=== PATIENT | male | born 1965 | race Caucasian/White ===

== ENCOUNTER 2018-09-23 16:10 | Observation (INO) ==
--- NOTE | 2018-09-23 17:34 | XRay Report ---
XR chest 1V portable CLINICAL HISTORY: 53 years-old Male presenting with chest pain after exercise today, shortness of shannan ath. TECHNIQUE: Portable upright AP view of the chest was obtained. COMPARISON: None. FINDINGS: Cardiac silhouette top normal in size. Pulmonary vascular prominence. No focal opacity. No large effu umesh or pneumothorax. Degenerative changes of the thoracic spine. IMPRESSION: 1. Borderline cardiomegaly with mild volume overload. Electronically signed by: Umair Metz M.D. 09/23/2018 5:32 PM
[2018-09-23 17:39] LABS: Basophils # (auto) 0.01 K/uL (0-0.2); Basophils % (auto) 0.1 %; Eosinophils # (auto) 0.08 K/uL (0-0.5); Eosinophils % (auto) 0.7 %; Hematocrit (blood only) 45.3 % (42-52); Hemoglobin 15.7 g/dL (14.0-18.0); Immature Granulocytes # (auto) 0.04 K/uL (0.00-0.02); Immature Granulocytes % (auto) 0.3 %; Lymphocytes # (auto) 1.95 K/uL (1.2-3.4); Mean Corpuscular Hgb Conc 34.7 g/dL (32-36); Mean Corpuscular Volume 91.9 fL (80-100); Mean Platelet Volume 13.8 fL (7.4-10.4); Monocytes # (auto) 0.89 K/uL (0.11-0.59); Monocytes % (auto) 7.3 %; Neutrophils # (auto) 9.21 K/uL (1.4-6.5); Neutrophils % (auto) 75.6 %; Platelet Count 210 K/uL (130-400); RDW Coefficient of Variation 13.7 % (11.5-14.5); Red Blood Count 4.93 M/uL (4.7-6.1); White Blood Count 12.18 K/uL (4.8-10.8)
[2018-09-23 17:49] LABS: Albumin Level 3.7 gm/dl (3.4-5.0); BUN Creatinine Ratio 15.8 (10-20); Calcium 9.5 mg/dl (8.5-10.1); Creatinine Clr Calc Pharmacy 139.1 ml/min; Est GFR (African American) 100.6; Est GFR (Non-African American) 86.8; Magnesium 2.3 mg/dl (1.8-2.4); Potassium 3.5 mmol/L (3.5-5.1)
[2018-09-23 17:59] LABS: Albumin Globulin Ratio 1.1 (0.9-2); Bilirubin,Total 1.1 mg/dl (0.2-1); Globulin 3.5 gm/dl (2.5-4.0); Phosphorus 1.7 mg/dl (2.5-4.9); Total Protein 7.2 gm/dl (6.4-8.2); Troponin I 0.018 ng/ml (0-0.045)
[2018-09-23] MEDS ORDERED: OPTIRAY 320 125ml IV PRN (19:21)
--- NOTE | 2018-09-23 19:32 | CT Scan Report ---
CT ANGIOGRAPHY OF THE CHEST, PULMONARY EMBOLUS PROTOCOL CLINICAL HISTORY: Right anterior chest pain. COMPARISON STUDY: Chest radiograph performed earlier today. TECHNIQUE: Following IV administration of 115 mL of Optiray-320, helical axial images of the chest we re obtained utilizing the pulmonary embolus protocol. Maximal intensity projections and sagittal and coronal reformats were viewed on an independent 3D workstation. IV contrast was administered withou t complication. Automated exposure control was utilized for the study. A dose lowering technique wa s utilized adhering to the principles of ALARA. CT DOSE: 961.55 mGy.cm FINDINGS: No pulmonary emboli are identified. No thoracic aortic dissection is noted. Ascending aort a is dilated, measuring 4.6 cm at the level of the main pulmonary artery. The heart is mildly enlarge d. There is no pericardial effusion. There is bilateral gynecomastia. No thoracic lymphadenopathy is present. The central airways are patent. There is no pneumothorax or pleural effusion. There is no co nsolidation to suggest pneumonia. No suspicious osseous lesions are noted. No fractures are identifie d within visualized portions of the wrist. IMPRESSION: 1. No pulmonary emboli identified. 2. No acute intrathoracic findings. 3. Dilatation of the ascending aorta, measuring 4.6 cm. No thoracic aortic dissection. 4. Mild cardiomegaly. Electronically signed by: Colt Contreras M.D. 09/23/2018 7:31 PM
[2018-09-23] MEDS ORDERED: POTASSIUM PHOS 3 MMOL/1 ML INFUSION IV STA ×2 (19:53→21:36)
[2018-09-23] MEDS ORDERED: FAMOTIDINE 20 MG TAB PO ONE (19:54)
[2018-09-23] MEDS ORDERED: GI COCKTAIL ED USE PO ONE (19:54)
[2018-09-23] MEDS ORDERED: POTASSIUM PHOSPHATE 9 MMOL in SODIUM CHLORIDE 0.9% 250 ML IV ONE (20:15)
[2018-09-23] MEDS ORDERED: POLYETHYLENE (MIRALAX) 17 GM PACK PO PRN (21:36)
[2018-09-23] MEDS ORDERED: MoRPHine SULFATE 2 MG/ML CARP IV PRN (21:36)
[2018-09-23] MEDS ORDERED: NITROGLYCERIN SL 0.4 MG/TAB TAB SL PRN (21:36)
[2018-09-23] MEDS ORDERED: ACETAMINOPHEN 325 MG TAB PO PRN (21:36)
[2018-09-23] MEDS ORDERED: ONDANSETRON INJ 2 MG/ML 2 ML VIAL IV PRN (21:36)
--- NOTE | 2018-09-23 21:44 | Emergency Department Note ---
Entered by Rachel Carr acting as a scribe for Jameel Powers MD History of Present Illness General Chief complaint: Chest Pain Stated complaint: CHEST PAIN Time Seen by Provider: 09/23/18 16:42 Source: patient Limitations: no limitations History of Present Illness Provider complaint: Chest Pain Onset (ago): hour(s) 3 Location: chest Maximum Pain Intensity: 2 Quality: + sharp and + other (+tight) Exacerbated By: + other (+taking deep breaths) Associated symptoms: + denies other symptoms (-dizziness, -pain in legs, -pain in calf muscles), + diaphoresis and + other (+burping); no fever/chills and no nausea/vomiting The patient is a 53 year old male who presents to the Emergency Room with complaints of chest pain that began 3 hours prior to arrival. The patient descri bes his pain as a sharp and tight and states that it mostly on the right side. The patient states that taking deep breaths exacerbates his pain. The patient states that diaphoresis and burping. The patient denies any dizziness, vomiting, fevers, chills, pain in legs, or pain in his calf muscles. The patient states that he did do some weight lifting prior to the onset of his symptoms. The patient states that he also ate [place] food for lunch. The patient states that he was at his PCP's office prior to arrival for an annual physical exam and states that there were no concerns. The patient denies every having a stress test done. The patient denies being sedentary recently but states that he did drive 10 hours in a car 4 days prior to arrival. The patient denies a history of blood clots in his legs or lungs, acid reflux, or heart attacks. Home Medications Home Medications Medication Instructions Recorded Confirmed Type fluticasone propionate [Flonase 2 spray INTRANASAL DAILY 09/23/18 09/23/18 History Allergy Relief] losartan-hydrochlorothiazide 1 tab PO QAM 09/23/18 09/23/18 History multivitamin 1 tab PO QAM 09/23/18 09/23/18 History omega 7-[id number]-fish oil [Fish Oil] 1 cap PO QAM 09/23/18 09/23/18 History Allergies Allergy/AdvReac Type Severity Reaction Status Date / Time No Known Allergies Allergy Verified 09/23/18 17:06 Past Med/Surg History Medical History No significant active problems No significant family history No significant medical problems No significant past medical history No significant past surgical history Social History Preferred Language: German Communication Ability: Effective Chip Person Required: No Beliefs That Will Affect Care: None Current Living Situation: Spouse Other Information That Helps Us Care for You: No Feels Safe at Home: Yes Safety Concerns: Feels Safe At This Time Smoking Status: Never smoker Do You Dip or Chew Tobacco: No Second Hand Exposure: Yes Hx Alcohol Use: Yes Hx Substance Use: No Review of Systems See HPI for pertinent positives & negatives. and A total of 10 systems reviewed and were otherwise negative Physical Exam Vital Signs Vital Signs - 24 hr 09/23/18 16:32 09/23/18 16:59 09/23/18 19:00 Temperature 36.8 C Temperature Source Oral Sepsis Recent Fever Within 48 Hours No Sepsis Action Taken by Nursing No Action Required Pulse Rate 87 84 Pulse Rate from SpO2 Sensor 84 Respiratory Rate 19 18 Blood Pressure 158/97 H 163/104 H Blood Pressure Mean 117 123 Pulse Oximetry 97 97 92 Oxygen Delivery Method Room Air Room Air 09/23/18 19:01 09/23/18 19:30 09/23/18 19:31 Temperature Temperature Source Sepsis Recent Fever Within 48 Hours Sepsis Action Taken by Nursing Pulse Rate 93 H 93 H 89 Pulse Rate from SpO2 Sensor 90 Respiratory Rate 18 17 Blood Pressure 186/99 H Blood Pressure Mean 128 Pulse Oximetry 95 Oxygen Delivery Method 09/23/18 19:32 09/23/18 19:40 09/23/18 19:50 Temperature Temperature Source Sepsis Recent Fever Within 48 Hours Sepsis Action Taken by Nursing Pulse Rate 89 88 88 Pulse Rate from SpO2 Sensor 89 89 88 Respiratory Rate 18 16 18 Blood Pressure Blood Pressure Mean Pulse Oximetry 95 96 95 Oxygen Delivery Method 09/23/18 20:00 09/23/18 20:01 09/23/18 20:10 Temperature Temperature Source Sepsis Recent Fever Within 48 Hours Sepsis Action Taken by Nursing Pulse Rate 88 87 90 Pulse Rate from SpO2 Sensor 88 87 90 Respiratory Rate 18 18 25 H Blood Pressure 161/94 H Blood Pressure Mean 116 Pulse Oximetry 95 95 96 Oxygen Delivery Method 09/23/18 20:20 09/23/18 20:30 09/23/18 20:31 Temperature Temperature Source Sepsis Recent Fever Within 48 Hours Sepsis Action Taken by Nursing Pulse Rate 88 87 86 Pulse Rate from SpO2 Sensor 87 Respiratory Rate 20 23 23 Blood Pressure 187/97 H Blood Pressure Mean 127 Pulse Oximetry 95 Oxygen Delivery Method GENERAL: Awake, alert, fatigued appearing, no distress, BMI of 49.3 kg. HENT: Normocephalic, atraumatic. TM's normal. Oropharynx with dry mucous membranes and otherwise unremarkable. EYES: PERRL. EOMI. Normal conjunctiva. Sclera non-icteric. NECK: Supple. No nuchal rigidity. FROM. No JVD or bruit. RESPIRATORY: CTAB CARDIAC: RRR. No murmur. ABDOMEN: Soft, non distended. No tenderness to palpation. No rebound or guarding. No masses. RECTAL: Deferred. MUSCULOSKELETAL: Unremarkable. No edema. No discoloration. Gross motor strength symmetric. NEURO: Normal sensorium. No sensory or motor deficits noted. SKIN: No rash or jaundice noted. LYMPH: No adenopathy. Course 1657: The patient was evaluated in room B7, and a complete history and physical examination were performed. 1809: I checked on the patient. The patient was updated on their imaging and lab results. 1929: I checked on the patient. The patient was updated on their imaging and lab results. I discussed the treatment plan with the patient and he is in agreement. 2000: I discussed the patient's case with Dr. Ad Childs who will evaluate the patient for further hospitalization. Consultations Consultation #1: Dr. Ad Childs Time: 20:01 Administered Medications Potassium Phosphate 24 mmol/ (Sodium Chloride) 508 mls @ 101.6 mls/hr IV ONE ONE Stop: 09/24/18 02:59 Last Admin: 09/23/18 22:48 Dose: 101.6 mls/hr Documented by: [id number] Morphine Sulfate (Morphine Sulfate) 2 mg IV Q30M PRN PRN Reason: Chest Pain Stop: 10/07/18 21:35 Last Admin: 09/23/18 22:24 Dose: 2 mg Documented by: [id number] Discontinued Medications Al Hydrox/Mg Hydrox/Simethicone () 1 dose PO ONE ONE Stop: 09/23/18 19:55 Last Admin: 09/23/18 20:20 Dose: 1 dose Documented by: [id number] Famotidine (Pepcid) 20 mg PO NOW ONE Stop: 09/23/18 19:55 Last Admin: 09/23/18 20:20 Dose: 20 mg Documented by: [id number] Potassium Phosphate 9 mmol/ (Sodium Chloride) 253 mls @ 126.5 mls/hr IV ONE ONE Stop: 09/23/18 22:14 Last Infusion: 09/23/18 22:50 Dose: 0 mls/hr Documented by: [id number] Admin: 09/23/18 20:20 Dose: 126.5 mls/hr Documented by: [id number] Ioversol (Optiray 320 125ml) 115 ml IV ONCE PRN PRN Reason: Interaction Checking Stop: 09/27/18 19:20 Last Admin: 09/23/18 19:21 Dose: 1 ml Documented by: [id number] Medical Decision Making Differential Diagnosis Differential diagnoses includes acute coronary syndrome, pulmonary embolus, aortic dissection, musculoskeletal pain, pneumonia, pleural effusion, pneumothorax, gastritis, peptic ulcer disease. Medical Records Attestation: I reviewed the patient's medical records. Home Medications Current Medication List: was personally reviewed by me Laboratory Data Attestation: I reviewed the patient's lab results. Result diagrams: 09/23/18 16:30 09/23/18 16:30 Lab Results 09/23/18 09/23/18 09/23/18 Range/Units 16:30 16:30 16:30 WBC 12.18 H (4.8-10.8) K/uL RBC 4.93 (4.7-6.1) M/uL Hgb 15.7 (14.0-18.0) g/dL Hct 45.3 (42-52) % MCV 91.9 (80-100) fL MCH 31.8 (25-34) pg MCHC 34.7 (32-36) g/dL RDW Std Deviation 46.0 (36.4-46.3) fL RDW Coeff of Denise 13.7 (11.5-14.5) % Plt Count 210 (130-400) K/uL MPV 13.8 H (7.4-10.4) fL Immature Gran % (Auto) 0.3 % Neut % (Auto) 75.6 % Lymph % (Auto) 16.0 % Lincoln % (Auto) 7.3 % Eos % (Auto) 0.7 % Baso % (Auto) 0.1 % Immature Gran # (Auto) 0.04 H (0.00-0.02) K/uL Neut # (Auto) 9.21 H (1.4-6.5) K/uL Lymph # (Auto) 1.95 (1.2-3.4) K/uL Lincoln # (Auto) 0.89 H (0.11-0.59) K/uL Eos # (Auto) 0.08 (0-0.5) K/uL Baso # (Auto) 0.01 (0-0.2) K/uL D-Dimer Cancelled Sodium 142 (136-145) mmol/L Potassium 3.5 (3.5-5.1) mmol/L Chloride 105 (98-107) mmol/L Carbon Dioxide 29 (21-32) mmol/L Anion Gap 9.0 (3-11) BUN 16 (7-18) mg/dl Creatinine 1.00 (0.6-1.4) mg/dl Est Cr Clr Drug Dosing 139.1 ml/min Est GFR ( Amer) 100.6 Est GFR (Non-Af Amer) 86.8 BUN/Creatinine Ratio 15.8 (10-20) Glucose 102 H (70-99) mg/dl Calcium 9.5 (8.5-10.1) mg/dl Phosphorus 1.7 L (2.5-4.9) mg/dl Magnesium 2.3 (1.8-2.4) mg/dl Total Bilirubin 1.1 H (0.2-1) mg/dl AST 30 (15-37) U/L ALT 54 (12-78) U/L Alkaline Phosphatase 86 (45-117) U/L Troponin I 0.018 (0-0.045) ng/ml NT-Pro-B Natriuret Pep (0-900) pg/ml Total Protein 7.2 (6.4-8.2) gm/dl Albumin 3.7 (3.4-5.0) gm/dl Globulin 3.5 (2.5-4.0) gm/dl Albumin/Globulin Ratio 1.1 (0.9-2) Lipase 95 (73-393) U/L TSH 1.950 (0.300-4.500) uIu/ml 09/23/18 09/23/18 Range/Units 16:30 20:10 WBC (4.8-10.8) K/uL RBC (4.7-6.1) M/uL Hgb (14.0-18.0) g/dL Hct (42-52) % MCV (80-100) fL MCH (25-34) pg MCHC (32-36) g/dL RDW Std Deviation (36.4-46.3) fL RDW Coeff of Denise (11.5-14.5) % Plt Count (130-400) K/uL MPV (7.4-10.4) fL Immature Gran % (Auto) % Neut % (Auto) % Lymph % (Auto) % Lincoln % (Auto) % Eos % (Auto) % Baso % (Auto) % Immature Gran # (Auto) (0.00-0.02) K/uL Neut # (Auto) (1.4-6.5) K/uL Lymph # (Auto) (1.2-3.4) K/uL Lincoln # (Auto) (0.11-0.59) K/uL Eos # (Auto) (0-0.5) K/uL Baso # (Auto) (0-0.2) K/uL D-Dimer Sodium (136-145) mmol/L Potassium (3.5-5.1) mmol/L Chloride (98-107) mmol/L Carbon Dioxide (21-32) mmol/L Anion Gap (3-11) BUN (7-18) mg/dl Creatinine (0.6-1.4) mg/dl Est Cr Clr Drug Dosing ml/min Est GFR ( Amer) Est GFR (Non-Af Amer) BUN/Creatinine Ratio (10-20) Glucose (70-99) mg/dl Calcium (8.5-10.1) mg/dl Phosphorus (2.5-4.9) mg/dl Magnesium (1.8-2.4) mg/dl Total Bilirubin (0.2-1) mg/dl AST (15-37) U/L ALT (12-78) U/L Alkaline Phosphatase (45-117) U/L Troponin I 0.024 (0-0.045) ng/ml NT-Pro-B Natriuret Pep 217 (0-900) pg/ml Total Protein (6.4-8.2) gm/dl Albumin (3.4-5.0) gm/dl Globulin (2.5-4.0) gm/dl Albumin/Globulin Ratio (0.9-2) Lipase (73-393) U/L TSH (0.300-4.500) uIu/ml Imaging Data Radiologist's Impression: Radiology results as stated below per my review and the radiologist's interpretation: XR chest 1V portable CLINICAL HISTORY: 53 years-old Male presenting with chest pain after exercise today, shortness of breath. TECHNIQUE: Portable upright AP view of the chest was obtained. COMPARISON: None. FINDINGS: Cardiac silhouette top normal in size. Pulmonary vascular prominence. No focal opacity. No large effusion or pneumothorax. Degenerative changes of the thoracic spine. IMPRESSION: 1. Borderline cardiomegaly with mild volume overload. Electronically signed by: Umair Metz M.D. 09/23/2018 5:[address] ANGIOGRAPHY OF THE CHEST, PULMONARY EMBOLUS PROTOCOL CLINICAL HISTORY: Right anterior chest pain. COMPARISON STUDY: Chest radiograph performed earlier today. TECHNIQUE: Following IV administration of 115 mL of Optiray-320, helical axial images of the chest were obtained utilizing the pulmonary embolus protocol. Maximal intensity projections and sagittal and coronal reformats were viewed on an independent 3D workstation. IV contrast was administered without complication. Automated exposure control was utilized for the study. A dose lowering technique was utilized adhering to the principles of ALARA. CT DOSE: 961.55 mGy.cm FINDINGS: No pulmonary emboli are identified. No thoracic aortic dissection is noted. Ascending aorta is dilated, measuring 4.6 cm at the level of the main pulmonary artery. The heart is mildly enlarged. There is no pericardial effusion. There is bilateral gynecomastia. No thoracic lymphadenopathy is present. The central airways are patent. There is no pneumothorax or pleural effusion. There is no consolidation to suggest pneumonia. No suspicious osseous lesions are noted. No fractures are identified within visualized portions of the wrist. IMPRESSION: 1. No pulmonary emboli identified. 2. No acute intrathoracic findings. 3. Dilatation of the ascending aorta, measuring 4.6 cm. No thoracic aortic dissection. 4. Mild cardiomegaly. Electronically signed by: Colt Contreras M.D. 09/23/2018 7:31 PM ECG Data Attestation: I personally reviewed and interpreted this ECG as follows: Indication: chest pain Rate (beats per minute): 84 Rhythm: normal sinus Findings: + nonspecific-ST abn; no ST depression, no ST elevation and no acute ischemic change Comparison ECG Date: from (REPEAT ECG on 09/23/18) Change: no significant change Additional Comments: Repeat ECG: Indication: chest pain Rate: 87 Rhythm: normal sinus Findings: nonspecific ST abnormality, NO ST elevation, NO ST depression, NO o vert acute ischemic change Blood Pressure Blood Pressure Findings: Elevated blood pressure Blood Pressure Disposition: Referred to patients primary care provider MDM Narrative The patient is a pleasant 53 y/o gentleman with a pmhx of HTN who presents to the emergency department with episode of substernal CP with exertion at noon today with improvement in sx after ASA and nitro by EMS prior to arrival per HPI. On arrival the patient is in NAD, AFVSS. EKG with nonspecific TWA and otherwise without overt acute ischemia. CXR with cardiomegaly and vascular prominence. Limited bedside RUQ US negative for gallstones. WBC 12, nonspecific. H/H and platelets wnl. Chemistry without acidosis. Phosphorus 1.7 with repletion provided. Initial troponin 0.18 with delta 4 hour troponin 0.024. BNP wnl. Repeat EKG unchanged. LFTs unremarkable. CTA negative for PE. There is dilatation of the ascending aorta, measuring 4.6 cm without dissection. Patient reporting slight return of sx, which are again located in right lower chest RUQ/epigastrim. Thus will trial pepcid and Gi cocktail to assess for possible GI component to sx. Nonetheless, given patient's initial exertional sx, Heart score 4, moderate risk. Therefore reasonable to admit for further cardiac evaluation. [facility]. Impression & Plan Exertional chest pain Discharge Plan Visit Data *Final* Discharge Date/Time: 09/23/18 21:10 Chief Complaint: Chest Pain Stated Complaint: CHEST PAIN ED Provider: Jameel Powers Discharge Problem: Exertional chest pain Patient Disposition: Admitted As Inpatient Discharge Instructions Interventions: ED Discharge Assessment Last Done: 09/23/18 21:10 The scribe's documentation has been prepared under my direction and personally reviewed by me in its entirety. I confirm that the note above accurately refl ects all work, treatment, procedures, and medical decision making performed by me.
[2018-09-23] MEDS ORDERED: POTASSIUM PHOSPHATE 24 MMOL in SODIUM CHLORIDE 0.9% 500 ML IV ONE (22:00)
--- NOTE | 2018-09-24 01:06 | History and Physical Report ---
DATE OF ADMISSION: 09/23/2018 CHIEF COMPLAINT: Chest pain. HISTORY OF PRESENT ILLNESS: This is a 53-year-old male with past medical history significant for hypertension and morbid obesity who presents with chest pain. The patient was in the gym, after he was doing lower extremity workouts when he suddenly developed severe chest pain in the right lower chest, it gotten more and more intense, he felt hard to breathe, he felt chest tightness kind of feeling and was brought in to the Emergency Room, he was given nitro which caused headache. During the episode, there was no dizziness. No nausea or vomiting, but he felt he was having sweating. In the Emergency Room, the patient received gastrointestinal cocktail and Pepcid. Currently, pain is mild in his right lower chest. He is resting comfortably and hemodynamically stable. Denies nausea. No blurred vision. No earache. No runny nose. No sore throat. No difficulty swallowing. He does not sleep well. He sleeps on a recliner at home. He has some lower extremity pain because of his ligament tear in his knees. No abdominal pain. Normal bowel and bladder movements. No hematuria. No diarrhea or constipation. ALLERGIES: No known drug allergies. PAST MEDICAL HISTORY: As mentioned above. PAST SURGICAL HISTORY: Shoulder surgery. MEDICATIONS: The patient is on losartan and hydrochlorothiazide 1 tablet a.m., Flonase 2 sprays nasal daily and omega fish oil daily. FAMILY HISTORY: Both uncles have heart disease. Father had sarcoidosis. SOCIAL HISTORY: Remote history of smoking. Alcohol, very rarely. Lives with his family. REVIEW OF SYMPTOMS: As per HPI. Rest of review of symptoms is negative. PHYSICAL EXAMINATION: GENERAL: The patient is morbidly obese, not in acute distress. VITAL SIGNS: Temperature 36.8, pulse 89, respiratory rate 17, blood pressure 186/99 and oxygen 95% on room air. HEENT: No pallor. No icterus. Pupils are equal, round and reactive to light. NECK: No JVD. No neck masses. No carotid bruit. CARDIOVASCULAR: S1, S2 heard. Regular rate and rhythm. No murmur. No gallop. RESPIRATORY SYSTEM: Normal AP diameter. No accessory muscle use. No wheezing. No crackles. ABDOMEN: Soft. Bowel sounds present. Nontender. No distention. CENTRAL NERVOUS SYSTEM: Cranial nerves II through XII grossly intact. Nonfocal. EXTREMITIES: Mild pedal edema. No erythema seen. LABORATORY DATA: WBC 12.1, hemoglobin 15.7, hematocrit 45.3 and platelets 210. Sodium 142, potassium 3.5, chloride 105, bicarbonate 29, BUN 16, creatinine 1, serum glucose 102, calcium 9.5, phosphorus 1.7, magnesium 2.3, total bilirubin 1.1, AST 30, ALT 54 and alkaline phosphatase 86. Troponin I of 0.018. Lipase 95. TSH 1.95. Chest x-ray, borderline cardiomegaly. CT of the chest, no pulmonary emboli identified, no acute intrathoracic findings, dilatation of ascending aorta measuring 4.6 cm, no thoracic aortic dissection and mild cardiomegaly. Electrocardiogram shows normal sinus rhythm, rate of [address] changes present. ASSESSMENT AND PLAN: This is a 53-year-old male who presents with chest pain. 1. Chest pain. Initial workup is negative. Risk factors are age, obesity and hypertension. We will rule out acute coronary syndrome with serial cardiac enzymes and echocardiogram. We will keep n.p.o. after midnight for possible stress test in a.m. Cardiology consult. Monitor on tele floor. 2. Morbid obesity, needs counseling, may need a sleep study as an outpatient. 3. Hypophosphatemia. We will replace. 4. Mild elevation in total bilirubin. Repeat laboratories in a.m. 5. Hypertension. Continue his home medications. 6. Dilated ascending aorta. 4.6cm. Needs followup. 7. Dep venous thrombosis prophylaxis, sequential compression devices. 8. Disposition: Observation on tele floor. Expect to discharge home and follow up with family doctor. Level 1 full code. MTDD
[2018-09-24 05:32] LABS: Basophils # (auto) 0.02 K/uL (0-0.2); Basophils % (auto) 0.2 %; Eosinophils # (auto) 0.09 K/uL (0-0.5); Eosinophils % (auto) 0.9 %; Hematocrit (blood only) 43.3 % (42-52); Hemoglobin 14.6 g/dL (14.0-18.0); Immature Granulocytes # (auto) 0.03 K/uL (0.00-0.02); Immature Granulocytes % (auto) 0.3 %; Lymphocytes # (auto) 1.34 K/uL (1.2-3.4); Mean Corpuscular Hgb Conc 33.7 g/dL (32-36); Mean Corpuscular Volume 91.9 fL (80-100); Monocytes % (auto) 10.7 %; Neutrophils # (auto) 7.69 K/uL (1.4-6.5); Neutrophils % (auto) 74.9 %; Platelet Count 193 K/uL (130-400); RDW Coefficient of Variation 13.8 % (11.5-14.5); RDW Standard Deviation 46.7 fL (36.4-46.3); Red Blood Count 4.71 M/uL (4.7-6.1); White Blood Count 10.27 K/uL (4.8-10.8)
[2018-09-24 05:48] LABS: BUN Creatinine Ratio 18.1 (10-20); Calcium 8.5 mg/dl (8.5-10.1); Est GFR (African American) 119.9; Est GFR (Non-African American) 103.4; Magnesium 2.5 mg/dl (1.8-2.4); Potassium 3.6 mmol/L (3.5-5.1)
[2018-09-24 05:53] LABS: Albumin Level 3.3 gm/dl (3.4-5.0); Bilirubin Direct 0.2 mg/dl (0-0.2); Bilirubin,Total 1.2 mg/dl (0.2-1); Total Protein 6.7 gm/dl (6.4-8.2); Troponin I 0.02 ng/ml (0-0.045)
[2018-09-24] MEDS ORDERED: LOSARTAN/HCTZ 50/12.5MG TAB PO SCH (09:00)
[2018-09-24] MEDS ORDERED: MULTIVITAMIN TAB PO SCH (09:00)
[2018-09-24] MEDS ORDERED: FLUTICASONE PROPIONATE NA SPR 16 GM BTL SCH (09:00)
[2018-09-24] MEDS ORDERED: ASPIRIN 81 MG ECTAB PO SCH (09:00)
[2018-09-24] MEDS ORDERED: DOBUTamine HCL 12.5 MG/ML 20 ML VIAL IV ONE (09:27)
[2018-09-24] MEDS ORDERED: ATROPINE SULFATE 0.1 MG/ML 10ML SYR IV ONE (09:27)
[2018-09-24] MEDS ORDERED: METOPROLOL TARTRATE 1 MG/ML VIAL IV ONE (09:27)
[2018-09-24] MEDS ORDERED: PERFLUTREN LIPID MICROSPHERE (DEFINITY) IV ONE (10:58)
--- NOTE | 2018-09-24 11:32 | Consultation Report ---
DATE OF CONSULTATION: 09/24/2018 INPATIENT CARDIOLOGY CONSULTATION CONSULTATION REQUESTED BY: Dr. Newman. REASON FOR CONSULTATION: Chest pain. HISTORY OF PRESENT ILLNESS: Mr. Alcantara is a 53-year-old gentleman who presented to [facility] on 09/23/2018 with complaints of chest pain. The patient states he was in his normal state of health yesterday and actually saw his primary care provider in the morning. He then went to work at the long term. He was going through his normal routine and suddenly developed chest pain. He described it as a pressure sensation that started in the center of his chest and then radiated around underneath his right breast. It was worse with deep inhalation and he denied any associated symptoms, specifically denied any associated shortness of breath, diaphoresis, nausea, palpitations, lightheadedness, dizziness, or syncope. The pain persisted and again was exacerbated by deep inhalation. He became concerned and came into the Emergency Department. In the ER, his EKG showed some nonspecific changes and was admitted to telemetry. He states that the pains stay present overnight and still present at time of the examination and ranks this anywhere between a 2-4 on a pain scale depending on how deep he breaths. Otherwise, he states he has been in his normal state of health lately. He has been lifting weights, but states he was not working out his chest muscles yesterday. PAST SURGICAL HISTORY: 1. Shoulder surgery. 2. Knee surgery. 3. Tonsillectomy as a child. MEDICAL ILLNESSES: 1. Hypertension. 2. Hypertriglyceridemia. FAMILY HISTORY: Remarkable for father with sarcoidosis, unclear of cardiac involvement, but denies any premature coronary artery disease or sudden cardiac . SOCIAL HISTORY: The patient has remote tobacco use history. Drinks occasional alcohol. Denies any recreational drug use. He is and lives at home with his . He has 2 children who are in good health. He is employed as a fire officer. REVIEW OF SYSTEMS: As per HPI, all other systems reviewed and negative at this time. ALLERGIES: No known drug allergies. MEDICATIONS AN OUTPATIENT: 1. Losartan/hydrochlorothiazide, the patient is unsure of dose. 2. Flonase. 3. Fish oil. 4. Multivitamin. PHYSICAL EXAMINATION: VITALS: Temperature 36.4, pulse 75, respiratory rate 12, blood pressure 154/88. GENERAL: Awake, alert, oriented x3 in no acute distress. HEENT: Normocephalic, atraumatic. Pupils equal, round, reactive to light and accommodation. Extraocular muscles intact. Anicteric sclerae. Moist mucous membranes. NECK: No JVD, no bruit. CARDIOVASCULAR: Regular, but distant. Unable to appreciate any murmurs, rubs or gallops. PULMONARY: Clear to auscultation bilaterally. No rales, rhonchi, or wheezing. ABDOMEN: Bowel sounds x4, soft. No rebound, guarding, or tenderness. No organomegaly. EXTREMITIES: No clubbing, cyanosis or edema. +2 pedal pulses bilaterally. SKIN: Warm and dry. TEST RESULTS: A 12-lead EKG performed in the Emergency Department independently reviewed at this time shows normal sinus rhythm at 84 beats per minute, normal axis, normal intervals, inverted T waves in the lateral leads. LABORATORY STUDIES: Troponin negative x3. Dobutamine stress echocardiogram was negative for inducible ischemia. IMPRESSION: 1. Chest pain with nonischemic dobutamine stress echocardiogram, reproducible. 2. Hypertension. 3. Obesity. RECOMMENDATIONS: Mr. Alcantara was counseled, given the fact that his chest pain is reproducible and that his dobutamine stress echocardiogram is nonischemic that there does not appear to be any cardiac involvement to his chest discomfort. I recommend stretching exercises and supportive care for his chest pain and follow up with his PCP. It is okay to discharge the patient to home from a cardiac standpoint. No cardiac followup is necessary.
[2018-09-24] MEDS ORDERED: ACETAMINOPHEN SOLN 160 MG/5 ML UDC PO PRN (13:08)
[2018-09-24] MEDS ORDERED: IBUPROFEN 200 MG/10 ML UDC PO PRN (13:09)
--- NOTE | 2018-09-24 13:17 | Hospitalist Progress Note ---
Date of Service September 24, 2018 Assessment & Plan (1) Chest pain: NON CARDIAC CHEST PAIN cardiology evaluation: "chest pain is reproducible and that his dobutamine stress echocardiogram is nonischemic that there does not appear to be any cardiac involvement to his chest discomfort." cardiology service recommends stretching exercises and supportive care for his chest pain and follow up with primary care doctor -hospitalist doctor discussed with patient about follow up with primary care doctor in 1 week if discomforts do no resolve -that patient can return to work without restrictions -however patient should minimize strength training exercises for 1 week or until discomfort resolves -patient may take acetaminophen 325 mg every 6 hours as needed for mild pain for 5 days -patient may take ibuprofen 400 mg every 8 hours as needed for moderate pain for 5 days Hypertension Patient should continue home dose blood pressure medications and follow up with primary care doctor Dilatation of the ascending aorta, measuring 4.6 cm. -No thoracic aortic dissection - monitoring as per primary care doctoras outpatient Dilatation of the ascending aorta, measuring 4.6 cm. No thoracic aortic dissection - monitoring as per primary care doctor Discharge Diagnosis chest pain (non cardiac chest pain), hypertension, Dilatation of the ascending aorta, measuring 4.6 cm. Subjective Patient seen and examined at bedside. No acute chest pressure. when he moves the shoulders he reports some chest pain beneath right rib cage. breathes comfortably on room air. no abdomen pain. no vomiting. no dizziness Physical Exam Constitutional: comfortable Eyes: PERRL, conjunctivae normal, anicteric sclerae EOM intact bilaterally ENMT: external ear and nose normal, oropharynx normal Neck: trachea midline, no thyromegaly Respiratory: normal respiratory effort, lungs clear to auscultation Cardiovascular: RRR, no murmur, no edema Gastrointestinal (Abdomen): normal bowel sounds, soft, nontender, no hepatosplenomegaly Musculoskeletal: no cyanosis or clubbing, extremities motor strength 5/5 Head/Neck/Chest: normocephalic and head atraumatic Neurologic: PERRL, EOMI, accommodation nl, no face palsy, no dysarthria CN's II-XI intact bilaterally Psychiatric: A+Ox3, euthymic affect Results & Data Vital Signs (Past 12 Hours) Vital Signs Temp Pulse Pulse Resp BP Pulse Ox 09/24/18 11:49 36.5 C 85 16 142/90 H 93 09/24/18 08:00 75 09/24/18 06:56 36.4 C L 74 16 154/88 H 94 09/24/18 04:10 36.5 C 83 18 155/83 H 95
--- NOTE | 2018-09-24 13:24 | Discharge Summary ---
Date of Service September 24, 2018 Admission HPI Per Admitting Provider CHIEF COMPLAINT: Chest pain. HISTORY OF PRESENT ILLNESS: This is a 53-year-old male with past medical history significant for hypertension and morbid obesity who presents with chest pain. The patient was in the gym, after he was doing lower extremity workouts when he suddenly developed severe chest pain in the right lower chest, it gotten more and more intense, he felt hard to breathe, he felt chest tightness kind of feeling and was brought in to the Emergency Room, he was given nitro which caused headache. During the episode, there was no dizziness. No nausea or vomiting, but he felt he was having sweating. In the Emergency Room, the patient received gastrointestinal cocktail and Pepcid. Currently, pain is mild in his right lower chest. He is resting comfortably and hemodynamically stable. Denies nausea. No blurred vision. No earache. No runny nose. No sore throat. No difficulty swallowing. He does not sleep well. He sleeps on a recliner at home. He has some lower extremity pain because of his ligament tear in his knees. No abdominal pain. Normal bowel and bladder movements. No hematuria. No diarrhea or constipation. ALLERGIES: No known drug allergies. PAST MEDICAL HISTORY: As mentioned above. PAST SURGICAL HISTORY: Shoulder surgery. MEDICATIONS: The patient is on losartan and hydrochlorothiazide 1 tablet a.m., Flonase 2 sprays nasal daily and omega fish oil daily. FAMILY HISTORY: Both uncles have heart disease. Father had sarcoidosis. SOCIAL HISTORY: Remote history of smoking. Alcohol, very rarely. Lives with his family. REVIEW OF SYMPTOMS: As per HPI. Rest of review of symptoms is negative. Admission Exam Per Admitting Provider PHYSICAL EXAMINATION: GENERAL: The patient is morbidly obese, not in acute distress. VITAL SIGNS: Temperature 36.8, pulse 89, respiratory rate 17, blood pressure 186/99 and oxygen 95% on room air. HEENT: No pallor. No icterus. Pupils are equal, round and reactive to light. NECK: No JVD. No neck masses. No carotid bruit. CARDIOVASCULAR: S1, S2 heard. Regular rate and rhythm. No murmur. No gallop. RESPIRATORY SYSTEM: Normal AP diameter. No accessory muscle use. No wheezing. No crackles. ABDOMEN: Soft. Bowel sounds present. Nontender. No distention. CENTRAL NERVOUS SYSTEM: Cranial nerves II through XII grossly intact. Nonfocal. EXTREMITIES: Mild pedal edema. No erythema seen. Principal Diagnosis chest pain (non cardiac chest pain), hypertension, Dilatation of the ascending aorta, measuring 4.6 cm. Discharge Exam Constitutional comfortable Eyes PERRL, conjunctivae normal, anicteric sclerae EOM intact bilaterally ENMT external ear and nose normal, oropharynx normal Neck trachea midline, no thyromegaly Respiratory normal respiratory effort, lungs clear to auscultation Cardiovascular RRR, no murmur, no edema Gastrointestinal (Abdomen) normal bowel sounds, soft, nontender, no hepatosplenomegaly Musculoskeletal no cyanosis or clubbing, extremities motor strength 5/5 Head/Neck/Chest: normocephalic and head atraumatic Neurologic PERRL, EOMI, accommodation nl, no face palsy, no dysarthria CN's II-XI intact bilaterally Psychiatric A+Ox3, euthymic affect Discharge Data Allergies Allergy/AdvReac Type Severity Reaction Status Date / Time No Known Allergies Allergy Verified 09/23/18 17:06 Consultations 09/23/18 20:02 ED Decision to Admit Stat 09/23/18 21:36 Consult Case Management - Discharge Planning Routine 09/24/18 08:00 Consult Cardiology Routine Ordered Studies 09/23/18 18:24 CT angio chest PE protocol Stat Hospital Course (1) Chest pain: NON CARDIAC CHEST PAIN cardiology evaluation: "chest pain is reproducible and that his dobutamine stress echocardiogram is nonischemic that there does not appear to be any cardiac involvement to his chest discomfort." cardiology service recommends stretching exercises and supportive care for his chest pain and follow up with primary care doctor -hospitalist doctor discussed with patient about follow up with primary care doctor in 1 week if discomforts do no resolve -that patient can return to work without restrictions -however patient should minimize strength training exercises for 1 week or until discomfort resolves -patient may take acetaminophen 325 mg every 6 hours as needed for mild pain for 5 days -patient may take ibuprofen 400 mg every 8 hours as needed for moderate pain for 5 days Hypertension Patient should continue home dose blood pressure medications and follow up with primary care doctor Dilatation of the ascending aorta, measuring 4.6 cm. -No thoracic aortic dissection - monitoring as per primary care doctoras outpatient Dilatation of the ascending aorta, measuring 4.6 cm. No thoracic aortic dissection - monitoring as per primary care doctor Discharge Diagnosis chest pain (non cardiac chest pain), hypertension, Dilatation of the ascending aorta, measuring 4.6 cm. Total Time Total Time Spent Total Time Spent (In Minutes): 40 minutes Total Time Includes: Examination of the Patient, Discharge Planning, Medication Reconciliation and Communication With Other Providers Discharge Plan Discharge Items Patient Disposition: Home - Self-Care Reason For Visit: CHEST PAIN Discharge Diagnosis: chest pain (non cardiac chest pain), hypertension, Dilatation of the ascending aorta, measuring 4.6 cm. No thoracic aortic dissection Condition: Good Discharge Goals: Improve function Activity: Resume your previous activity Non-emergency contact: Primary Care Provider Call non-emergency contact if: you have any medication questions Follow-up/Referrals: PCP,LISA [Primary Care Provider] - Diet: Regular Addtl Provider Instructions: cardiology evaluation: "chest pain is reproducible and that his dobutamine stress echocardiogram is nonischemic that there does not appear to be any cardiac involvement to his chest discomfort." cardiology service recommends stretching exercises and supportive care for his chest pain and follow up with primary care doctor hospitalist doctor discussed with patient about follow up with primary care doctor in 1 week if discomforts do no resolve -that patient can return to work without restrictions -however patient should minimize strength training exercises for 1 week or until discomfort resolves -patient may take acetaminophen 325 mg every 6 hours as needed for mild pain for 5 days -patient may take ibuprofen 400 mg every 8 hours as needed for moderate pain for 5 days Patient should continue home dose blood pressure medications and follow up with primary care doctor Dilatation of the ascending aorta, measuring 4.6 cm. No thoracic aortic dissection - monitoring as per primary care doctor Prescriptions: New ibuprofen 400 mg tablet 400 mg PO Q8H PRN (Reason: moderate pain) 5 Days Qty: 15 RF: 0 acetaminophen 325 mg capsule 325 mg PO Q6H PRN (Reason: mild pain) 5 Days Qty: 20 RF: 0 Continued multivitamin Tablet 1 tab PO QAM RF: 0 losartan-hydrochlorothiazide 100-25 mg tablet 1 tab PO QAM RF: 0 fluticasone propionate [Flonase Allergy Relief] 50 mcg/actuation [place],Suspension 2 spray INTRANASAL DAILY RF: 0 omega [id number] oil [Fish Oil] 1,000 mg (120 mg-180 mg) Capsule 1 cap PO QAM RF: 0 Stand-Alone Forms: Call Back Authorization, [facility] Discharge Orders: Discharge Order (Routine); Ordered 09/24/18 Ordered By: Hoang Newman Admission Data Admit Date/Time: 09/23/18 20:38 Attending Provider: Hoang Newman Admit Provider: Dk Torres Primary Care Provider: PCP,NO Other Providers: Dk Torres ; Vijay Rivas ; Carter Negrete ; Clive Verdugo ; Zhang Martin ; Tawanda Yeh ; Valerio Hilton ; Miranda Anguiano ; Stephanie Slaughter Service: Telemetry
== END 2018-09-24 14:50 | disposition home or self-care (01) ==
LOC: ED 16:10 → 2S 16:10

== ENCOUNTER 2024-01-20 10:38 | Observation (INO) ==
--- NOTE | 2023-12-29 16:14 | PAT Medication Instructions ---
Medication Instructions Date of Service December 29, 2023 Home Medications fluticasone propionate 50 mcg/actuation nasal spray,suspension (Flonase Allergy Relief) 2 spray intranasal QAM losartan 100 mg-hydrochlorothiazide 25 mg tablet 1 tab PO QAM amlodipine 10 mg tablet 10 mg PO QAM aspirin 81 mg tablet,delayed release 81 mg PO QAM bumetanide 1 mg tablet 1 mg PO QAM fexofenadine 180 mg tablet 180 mg PO DAILY PRN Allergy Symptoms potassium chloride 20 mEq tablet,extended release 40 meq PO QAM tramadol 50 mg tablet 50 mg PO HS ASK your prescriber and surgeon aspirin 81 mg tablet,delayed release 81 mg PO QAM DO NOT take the morning of surgery losartan 100 mg-hydrochlorothiazide 25 mg tablet 1 tab PO QAM bumetanide 1 mg tablet 1 mg PO QAM fexofenadine 180 mg tablet 180 mg PO DAILY PRN Allergy Symptoms potassium chloride 20 mEq tablet,extended release 40 meq PO QAM Take morning of surgery With a small sip of water, OTHERWISE NOTHING TO EAT OR DRINK AFTER MIDNIGHT: fluticasone propionate 50 mcg/actuation nasal spray,suspension (Flonase Allergy Relief) 2 spray intranasal QAM amlodipine 10 mg tablet 10 mg PO QAM Take evening before surgery fexofenadine 180 mg tablet 180 mg PO DAILY PRN Allergy Symptoms (if needed) tramadol 50 mg tablet 50 mg PO HS Other Notes If you have any questions please call us at [phone] or [phone] or [phone] or [phone]
--- NOTE | 2024-01-08 13:12 | Anesthesiology Consultation ---
Date of Service January 08, 2024 Assessment & Plan (1) Encounter for pre-operative examination: - hypokalemia, 2.9: I contacted the PCP office ([facility], [facility] Roman) and relayed this level to nurse Radha. Patient will need both PCP and pulmonology pre-operative notations. Awaiting PCP response on hypokalemia. - [facility] pulmonology response to optimization form if chest CT and PFTs need done prior to surgery. Patient made aware at PAT, denied questions or concerns. Surgeon's office made aware of above. Chart Review Chart Review: Pending: Refer to Additional Notes / Consult section and Patient seen in Pre Admission Testing Teaching & Discussion Pre-Anesthesia Teaching/Discussion Notes: Instructed NPO after midnight before surgery, except medications with 15 cc of water. Medication instructions provided according to the [facility] guidelines. History Surgery Operation Date: 01/20/24 12:05 Proposed Procedures p L2-L3, L3-L4 Posterior Lumbar Laminectomy - Figueroa Renae MD Height/Weight Height: 6 ft Weight: 159.6 kg Allergies Allergy/AdvReac Type Severity Reaction Status Date / Time No Known Allergies Allergy Verified 12/25/23 09:00 Medications Home Medications Medication Instructions Recorded Confirmed Last Taken fluticasone propionate 50 2 spray intranasal QAM 09/23/18 12/25/23 01/29/23 09:30 mcg/actuation nasal spray,suspension (Flonase Allergy Relief) losartan 100 1 tab PO QAM 09/23/18 12/25/23 01/29/23 09:30 mg-hydrochlorothiazide 25 mg tablet amlodipine 10 mg tablet 10 mg PO QAM 01/22/23 12/25/23 01/30/23 06:45 aspirin 81 mg tablet,delayed 81 mg PO QAM 01/22/23 12/25/23 01/29/23 09:30 release bumetanide 1 mg tablet 1 mg PO QAM 01/22/23 12/25/23 01/29/23 09:30 fexofenadine 180 mg tablet 180 mg PO DAILY PRN Allergy 01/22/23 12/25/23 Unknown Symptoms potassium chloride 20 mEq 40 meq PO QAM 01/22/23 12/25/23 01/29/23 09:30 tablet,extended release tramadol 50 mg tablet 50 mg PO HS 12/25/23 12/25/23 Unknown Past Medical History Medical History (Updated 01/08/24 @ 13:24 by Garima Myers PA-C) Anxiety Bilateral finger numbness suspected sarcoidosis per patient, states has upcoming CT and PFT ordered by pulmonology [place] CAD (coronary artery disease) non-obstructive Chronic low back pain HTN (hypertension) controlled, stable per pt Hx of chest pain 2018, cardiac cath at [facility], "no findings, had one f/u visit w/ph cardio and released" denies recurrence Low back pain radiating to left lower extremity Lumbar stenosis with neurogenic claudication Pulmonary hypertension noted on 2019 cardiac catheterization Sleep apnea CPAP Patient denies h/o stroke, seizures, heart attack, heart failure, DM, blood clots/DVTs or blood transfusions. Exercise / Class Metabolic Activity III < 4 Walking/Shop/Light housework (denies chest discomfort or shortness of breath with usual activities) Past Surgical History Surgical History History of arthroscopy of left knee History of arthroscopy of right knee History of arthroscopy of right shoulder History of cardiac catheterization 2019, [facility], no stents. d/c from [facility] few years ago. History of surgery for ingrown toenail History of tonsillectomy Hx of hernia repair Past Anesthesia History No Hx of Anesthesia Complications and No Family Hx of Anesthesia Complications History of PONV No Hx of PONV and No Hx of Motion Sickness Social History Smoking Status: Former smoker Do You Dip or Chew Tobacco: No (quit 30 years ago; advised) Smoking End Date: years ago Hx Alcohol Use: Yes Alcohol type: beer, wine and hard liquor alcohol intake frequency: holidays/special occasions only Hx Substance Use: No substance use type: does not use Review of Systems Patient denies chest pain, shortness of breath, dyspnea on exertion, reflux, fever, chills, cough, wheezing, or palpitations. Physical Exam Vital Signs Vitals BP 124/72 P 90 TEMP 98.0 SP02 96% on RA RESP 18 Physical Patient resting comfortably in chair in no acute distress, alert and oriented, responding appropriately throughout visit Short thick neck Full cervical extension range of motion without pain TMD 3.5 finger breadths Mallampati Score 2 Dentition: intact, denies chipped or loose teeth, caps/crowns, implants or bridges Lungs: normal respiratory effort. Good air movement, clear throughout to auscul tation, no adventitious breath sounds Cardiac: regular rate and rhythm, no murmurs noted Carotid arteries: negative bruit bilat Lab Results Anesthesia Preop Results Results Anesthesia Widget: WBC 8.47 K/ul (4.8-10.8) 01/08/24 Hgb 16.1 g/dl (14.0-18.0) 01/08/24 Hct 46.9 % (42.0-52.0) 01/08/24 Plt 280 K/uL (130-400) 01/08/24 Na 140 mmol/L (136-145) 01/08/24 K 2.9 mmol/L (3.5-5.1) L 01/08/24 Cl 97 mmol/L (98-107) L 01/08/24 CO2 35 mmol/L (21-32) H 01/08/24 BUN 11 mg/dl (6-23) 01/08/24 Creat 0.85 mg/dl (0.6-1.4) 01/08/24 Glucose Level 146 mg/dl (70-99(Fasting)) H 01/08/24 PT 11.6 Seconds (9.0-12.0) 01/08/24 PTT 30 Seconds (21-31) 01/08/24 INR 1.1 (0.9-1.1) 01/08/24 Blood Type AB Positive 01/08/24 Antibody Screen NEGATIVE 01/08/24 Testing Electrocardiogram Date: 01/08/24 NSR, rate 92 bpm Chest X-Ray Date: 01/08/24 No active disease in the chest. Stress Test Date: 09/25/18 Nonischemic dobutamine stress echocardiogram EF 55-60% Mild cLVH No segmental LV wall motion abnormalities Grade I diastolic dysfunction Poorly visualized valvular structures without significant stenosis or regurgitation Cardiac Catheterization Date: 11/06/18 Left main: no angiographically significant disease LAD: proximal 20% lesion LCx: 50% lesion and 30% lesion RCA: no angiographically significant disease Sleep study was again discussed with the patient Pulmonary hypertension
[2024-01-20] MEDS: GABAPENTIN 600 MG DOSE PO SCH (11:32)
[2024-01-20] MEDS: LR 60ML/HR IV SCH (11:32)
[2024-01-20] MEDS: LR 15ML/HR IV SCH (11:33)
[2024-01-20] MEDS ORDERED: DEXAMETHASONE SOD INJ 4 MG/ML VIAL ONE (12:59)
[2024-01-20] MEDS ORDERED: PROPOFOL IV EMULSION 10 MG/ML 20 ML VIAL IV ONE (12:59)
[2024-01-20] MEDS ORDERED: LIDOCAINE 2% 2 ML VIAL/AMP(20MG/ML) INFIL ONE (12:59)
[2024-01-20] MEDS ORDERED: MIDAZOLAM HCL 1 MG/ML 2ML VIAL ONE (12:59)
[2024-01-20] MEDS ORDERED: GLYCOPYRROLATE 0.2 MG/ML VIAL ONE (12:59)
[2024-01-20] MEDS ORDERED: ONDANSETRON INJ 2 MG/ML 2 ML VIAL ONE (12:59)
[2024-01-20] MEDS ORDERED: SUGAMMADEX SODIUM 200 MG/2 ML VIAL IV ONE (13:00)
[2024-01-20] MEDS ORDERED: fentaNYL citrate PF 100 MCG/2 ML VIAL ONE ×5 (13:00→17:59)
[2024-01-20] MEDS ORDERED: ROCURONIUM BROMIDE 10 MG/ML 5 ML VIAL IV ONE ×3 (13:06→17:54)
--- NOTE | 2024-01-20 14:46 | History & Physical Bridge Note ---
Date of Service January 20, 2024 L2-3, L3-4 lumbar decompression, laminectomy History & Physical Bridge Note I have examined the patient, reviewed the History & Physical and in the interval since the performance of the History & Physical I have noted the following changes of clinical significance: no changes noted
[2024-01-20] MEDS: ceFAZolin 3000MG 3,000 MG/72.5 ML BAG IV SCH (14:56)
[2024-01-20] MEDS: VANCOMYCIN HCL 1000MG/20ML VIAL ONE (17:03)
[2024-01-20] MEDS ORDERED: KETOROLAC 30 MG/ML VIAL ONE (18:23)
[2024-01-20] MEDS: BUPIVACAINE/EPINEPHRINE 0.5% MPF 1:200,000 30 ML VIAL ONE (18:34)
[2024-01-20] MEDS: methylPREDNISolone acetate 40 MG/ML VIAL ONE (18:34)
[2024-01-20] MEDS: GELATIN SPONGE 12-7MM ONE (18:34)
[2024-01-20] MEDS: FLOSEAL HEMOSTATIC MATRIX 5ML TOP ONE (18:35)
[2024-01-20] MEDS: THROMBIN 5000 UNITS KIT ONE (18:35)
[2024-01-20] MEDS ORDERED: KETAMINE HCL 10MG/ML SYR ONE (18:39)
--- NOTE | 2024-01-20 18:59 | Post Operative Brief Note ---
PG Immediate Post Op with CF Date of Surgery January 20, 2024 Pre & Post Diagnosis Operation Date: 01/20/24 12:15 Pre-Op Diagnosis: Lumbar stenosis with neurogenic claudication. Post-Op Diagnosis: Lumbar stenosis with neurogenic claudication. I identified the patient and participated in the time-out.: Yes Procedure Operation Date: 01/20/24 12:15 Actual Procedures p L2-L3, L3-L4 Posterior Lumbar Laminectomy - Figueroa Renae MD Surgeon Figueroa Renae MD Practical Nurse Clinical Coordinator none Estimated Blood Loss 200 Findings Consistent with Post-Op Diagnosis Specimens Specimen Description: No specimen Drains Waller Catheter ([id number] Hunter Akhtar RN placed waller without issue. Yellow urine noted in tube.)
[2024-01-20] MEDS ORDERED: PROMETHAZINE 12.5 MG/50.5 ML BAG IV PRN (19:00)
[2024-01-20] MEDS ORDERED: ACETAMINOPHEN 1,000 MG/100 ML VIAL IV PRN (19:00)
[2024-01-20] MEDS ORDERED: DO NOT ADMINISTER PNEUMOCOCCAL VACCINE PRN (19:00)
[2024-01-20] MEDS ORDERED: ONDANSETRON INJ 2 MG/ML 2 ML VIAL IV PRN ×2 (19:00→19:06)
[2024-01-20] MEDS ORDERED: MAGNESIUM HYDROXIDE SUSP 30 ML UDC PO PRN (19:00)
[2024-01-20] MEDS ORDERED: NALOXONE HCL 0.4 MG/1 ML VIAL/CARP IV PRN ×2 (19:00→19:06)
[2024-01-20] MEDS ORDERED: SOD PHOSPHATE/SOD BIPHOSPHATE ENEMA 132 ML BTL PR PRN (19:00)
[2024-01-20] MEDS ORDERED: ALUMINUM/MAGNESIUM SUSP 30 ML UDC PO PRN (19:00)
[2024-01-20] MEDS ORDERED: ACETAMINOPHEN 500 MG TAB PO PRN (19:00)
[2024-01-20] MEDS ORDERED: METOCLOPRAMIDE HCL INJ 5 MG/ML 2 ML VIAL IV PRN (19:00)
[2024-01-20] MEDS ORDERED: FAMOTIDINE 20 MG TAB PO PRN (19:00)
[2024-01-20] MEDS ORDERED: DO NOT ADMINISTER FLU VACCINE PRN (19:00)
[2024-01-20] MEDS ORDERED: hydrOXYzine HCl 25 MG TAB PO PRN (19:00)
[2024-01-20] MEDS ORDERED: LORazepam 0.5 MG TAB PO PRN (19:00)
[2024-01-20] MEDS ORDERED: bisacodyL 10 MG SUPP PR PRN (19:00)
[2024-01-20] MEDS ORDERED: ONDANSETRON 4 MG OD TAB PO PRN (19:00)
[2024-01-20] MEDS ORDERED: diphenhydrAMINE Capsule 25 MG CAP PO PRN (19:00)
[2024-01-20] MEDS ORDERED: LORazepam 2 MG/1 ML VIAL IV PRN (19:00)
[2024-01-20] MEDS ORDERED: HYDROmorphone INJ 0.5 MG/0.5 ML SYR IV PRN (19:00)
[2024-01-20] MEDS ORDERED: PROMETHAZINE HCL 6.25 MG in SODIUM CHLORIDE 0.9% 50 ML IV PRN (19:06)
[2024-01-20] MEDS ORDERED: ATROPINE SULFATE 0.1 MG/ML 10ML SYR IV PRN (19:06)
[2024-01-20] MEDS ORDERED: HYDROmorphone INJ 1 MG/ML SYRINGE IV PRN (19:06)
[2024-01-20] MEDS ORDERED: ePHEDrine sulfate 50 MG/ML AMP IV PRN (19:06)
[2024-01-20] MEDS ORDERED: FLUMAZENIL 0.1 MG/1 ML 10 ML VIAL IV PRN (19:06)
[2024-01-20] MEDS ORDERED: LABETALOL HCL IV 5 MG/ML 20ML IV PRN (19:06)
[2024-01-20] MEDS ORDERED: fentaNYL citrate PF 100 MCG/2 ML VIAL IV PRN (19:06)
--- NOTE | 2024-01-20 19:40 | Anesthesiology Progress Note ---
Date of Service January 20, 2024 Anesthesia Post Procedure Vital Signs Vital Signs: Temp Pulse Resp BP Pulse Ox O2 Del Method O2 Flow Rate 01/20/24 19:35 89 18 135/77 94 Room Air 01/20/24 19:25 36.5 C 90 12 143/66 H 96 Room Air 01/20/24 19:15 93 H 12 132/78 94 Oxymask 4 01/20/24 19:05 94 H 12 123/83 94 Oxymask 4 01/20/24 18:55 36.2 C L 87 14 147/78 H 93 Oxymask 6 01/20/24 11:22 37.0 C 95 H 22 153/84 H 96 Room Air Transfer of Care Handoff Completed per policy Notes Mental Status: alert / awake / arousable Patient Amnestic to Procedure: Yes Nausea / Vomiting: adequately controlled Pain: adequately controlled Airway Patency, RR, SpO2: stable & adequate BP & HR: stable & adequate Hydration State: stable & adequate Anesthetic Complications: no major complications apparent
--- NOTE | 2024-01-20 20:49 | Hospitalist Consultation ---
Date of Consultation January 20, 2024 Assessment & Plan (1) Lumbar stenosis with neurogenic claudication: (2) Low back pain radiating to left lower extremity: (3) CAD (coronary artery disease): (4) HTN (hypertension): (5) Anxiety: (6) Sleep apnea: Plan S/P p L2-L3, L3-L4 Posterior Lumbar Laminectomy -Surgery performed by Dr. Renae on 01/19 -VTE prophylaxis and pain management per primary ortho spine team -Will order CBC in a.m. Hypertension -Continue Amlodipine, Losartan HCTZ, Spironolactone tomorrow a.m. -Monitor BMP to check Potassium level Obstructive Sleep Apnea | Dyspnea with Exertion -Use CPAP nightly -Recently seen by pulmonology, has father with sarcoidosis and is undergoing workup for this Supervising Physician Co-Signing Physician Notes Attending addendum: I have physically seen this patient, have supervised the medical residents activities, and agree with the H&P unless as otherwise noted. Assessment and Plan: Status post lumbar surgery- Performed by Dr. Renae on 01/19 Seen postoperatively is medically stable Pain management surgical management per primary service Hypertension- Continue amlodipine Continue losartan/HCTZ and spironolactone, pending results of morning BMP DARREL- CPAP at at bedtime Nasal cannula oxygen, titration goal 92-94% History of Present Illness Attending Physician: Figueroa Renae MD History of Present Illness Zhang Alcantara is a 58 year-old male who was admitted to the hospital for observation after spinal fusion on 01/20/24. His medical history if significant for HTN, DARREL, allergic rhinitis, hyperlipidemia. Patient reports feeling well since returning from PACU to the floor. 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 Notes that he recently had one medication changed (Bumex to spironolactone) due to low potassium but states he has been taking all medications as prescribed and uses a CPAP at night. Denies chest pain or shortness of breath. Allergies Allergy/AdvReac Type Severity Reaction Status Date / Time No Known Allergies Allergy Verified 01/20/24 11:18 Home Medications Medication Instructions Recorded Confirmed Type fluticasone propionate 50 2 spray intranasal QAM 09/23/18 01/20/24 History mcg/actuation nasal spray,suspension (Flonase Allergy Relief) losartan 100 1 tab PO QAM 09/23/18 01/20/24 History mg-hydrochlorothiazide 25 mg tablet amlodipine 10 mg tablet 10 mg PO QAM 01/22/23 01/20/24 History aspirin 81 mg tablet,delayed 81 mg PO QAM 01/22/23 01/20/24 History release fexofenadine 180 mg tablet 180 mg PO DAILY PRN Allergy 01/22/23 01/20/24 History Symptoms potassium chloride 20 mEq 40 meq PO QAM 01/22/23 01/20/24 History tablet,extended release tramadol 50 mg tablet 50 mg PO HS 12/25/23 01/20/24 History spironolactone 50 mg tablet 50 mg PO DAILY 01/20/24 01/20/24 History (Aldactone) oxycodone-acetaminophen 5 mg-325 1 tab PO Q6H #20 tabs 01/21/24 Rx mg tablet Patient History Medical History Bilateral finger numbness suspected sarcoidosis per patient, states has upcoming CT and PFT ordered by pulmonology Garber CAD (coronary artery disease) non-obstructive Lumbar stenosis with neurogenic claudication Low back pain radiating to left lower extremity Hx of chest pain 2019, cardiac cath at [facility], "no findings, had one f/u visit w/ cardio and released" denies recurrence Pulmonary hypertension noted on 2019 cardiac catheterization Chronic low back pain Anxiety HTN (hypertension) controlled, stable per pt Sleep apnea CPAP Surgical History History of arthroscopy of left knee History of surgery for ingrown toenail History of tonsillectomy Hx of hernia repair History of arthroscopy of right shoulder History of arthroscopy of right knee History of cardiac catheterization 2019, [facility], no stents. d/c from [facility] few years ago. Social History Smoking Status: Never smoker Second Hand Exposure: No; Do You Dip or Chew Tobacco: No (quit 30 years ago; advised); Hx Alcohol Use: Yes Alcohol type: beer Hx Substance Use: No Preferred Language: Urdu Communication Ability: Effective Motor Carrier Inspector Required: No Beliefs That Will Affect Care: None Current Living Situation: Spouse Feels Safe at Home: Yes Assistive Devices: None Review of Systems Review of Systems: As per above Physical Exam Constitutional: WD/WN, vitals as above Eyes: + anicteric sclerae; no conjunctival abn ormality ENMT: Ears: no external ear abnormality Nose: no external nose abnormality Moist mucous membranes Respiratory: normal respiratory effort, lungs clear to auscultation Cardiovascular: Rate/Rhythm: regular rate and regular rhythm Gastrointestinal (Abdomen): Abdomen soft, nontender and nondistended Skin: no rashes, warm and dry Psychiatric: A+Ox3, euthymic affect Results & Data Results & Data Vital Signs (Past 12 Hours) Vital Signs Temp Pulse Pulse Resp BP Pulse Ox O2 Del Method 01/20/24 20:44 36.7 C 88 17 129/74 92 Room Air 01/20/24 19:50 36.7 C 91 H 18 176/76 H 93 Room Air 01/20/24 19:35 89 18 135/77 94 Room Air 01/20/24 19:25 36.5 C 90 12 143/66 H 96 Room Air 01/20/24 19:15 93 H 12 132/78 94 Oxymask 01/20/24 19:05 94 H 12 123/83 94 Oxymask 01/20/24 18:55 36.2 C L 87 14 147/78 H 93 Oxymask 01/20/24 11:22 37.0 C 95 H 22 153/84 H 96 Room Air O2 Flow Rate 01/20/24 20:44 01/20/24 19:50 01/20/24 19:35 01/20/24 19:25 01/20/24 19:15 4 01/20/24 19:05 4 01/20/24 18:55 6 01/20/24 11:22 Resident Activity Tracking Resident Involvement: Resident Care Provided Care Provided: Adult Hospital Medicine
[2024-01-20] MEDS: DOCUSATE SODIUM/SENNA 50/8.6MG TAB PO SCH (21:24)
[2024-01-20] MEDS: oxyCODONE/ACETAMINOPHEN 5mg/325mg TAB PO PRN (23:18)
[2024-01-21] MEDS: ceFAZolin 2000MG 2,000 MG/15 ML SYR IV SCH (01:24)
[2024-01-21] MEDS ORDERED: LR 15ML/HR IV SCH (06:00)
[2024-01-21] MEDS ORDERED: LR 60ML/HR IV SCH (06:00)
[2024-01-21] MEDS ORDERED: ceFAZolin 3000MG 3,000 MG/72.5 ML BAG IV SCH (06:00)
[2024-01-21] MEDS ORDERED: GABAPENTIN 600 MG DOSE PO SCH (06:00)
[2024-01-21] MEDS: POLYETHYLENE (MIRALAX) 17 GM PACK PO SCH (06:07)
[2024-01-21 06:56] VITALS: BP 145/73; RESP 20; TEMP 98.1; O2SAT 98
[2024-01-21 07:17] LABS: Basophils # (auto) 0.02 K/uL (0.00-0.20); Basophils % (auto) 0.1 %; Hematocrit (blood only) 40.9 % (42.0-52.0); Hemoglobin 14.2 g/dl (14.0-18.0); Immature Granulocytes # (auto) 0.12 K/uL (0.01-0.20); Immature Granulocytes % (auto) 0.6 %; Lymphocytes # (auto) 1.57 K/uL (1.20-3.40); Lymphocytes % (auto) 8.4 %; Mean Corpuscular Hemoglobin 31.1 pg (25.0-34.0); Mean Corpuscular Hgb Conc 34.7 g/dL (32.0-36.0); Mean Corpuscular Volume 89.7 fL (80.0-100.0); Mean Platelet Volume 12.4 fL (9.4-12.4); Monocytes # (auto) 1.52 K/uL (0.11-0.59); Monocytes % (auto) 8.2 %; Neutrophils # (auto) 15.36 K/uL (1.40-6.50); Neutrophils % (auto) 82.7 %; Platelet Count 268 K/uL (130-400); RDW Standard Deviation 46.1 fL (36.4-46.3); Red Blood Count 4.56 M/uL (4.70-6.10); White Blood Count 18.59 K/ul (4.8-10.8)
[2024-01-21 07:42] LABS: BUN Creatinine Ratio 18.8 (10-20); Calcium 8.5 mg/dl (8.6-10.3); Creatinine Clr Calc Pharmacy 127.2 ml/min; Potassium 4.6 mmol/L (3.5-5.1)
[2024-01-21] MEDS: amLODIPine BESYLATE 5 MG TAB PO SCH (07:45)
[2024-01-21] MEDS: FLUTICASONE PROPIONATE NA SPR 16 GM BTL SCH (07:45)
[2024-01-21] MEDS: LOSARTAN/HCTZ 50/12.5MG TAB PO SCH (07:46)
[2024-01-21] MEDS: SPIRONOLACTONE 25 MG TAB PO SCH (07:46)
[2024-01-21] MEDS: POTASSIUM CHLORIDE CRTAB 20 MEQ TABCR PO SCH (09:59)
--- NOTE | 2024-01-21 11:58 | Orthopedic Progress Note ---
Date of Service January 21, 2024 Subjective Patient seen and examined, he notes some soreness in the incisional area but otherwise he notes a distinct improvement in his lower extremities. Assessment tingling. Incision with some limited drainage otherwise neurologically intact. Impression/plan: Patient postop day 1 from L2-3 and L3-4 posterior lumbar decompression, improvement of preoperative symptoms. Review of Systems All systems reviewed & are unremarkable except as noted in HPI & below. Physical Exam . Results & Data Results & Data Laboratory Results . Diagnostic Findings . PG Care Time/CCT Total # of Minutes Spent Total Time Spent with Patient: Total time spent is greater than 50% in coordination of care (as documented) at patient's floor/unit and/or counseling patient: Coding Level of Care Code 62759 Post Operative Follow-Up
--- NOTE | 2024-01-21 12:09 | Discharge Summary ---
Date of Service January 21, 2024 Admission HPI (Per Admitting) Lumbar stenosis with neurogenic claudication. Principal Diagnosis Same as "Discharge Diagnosis" noted below under Discharge Instructions. Discharge Exam . Discharge Data Consultations 01/20/24 19:00 Consult Hospitalist Routine Procedures Performed Operation Date: 01/20/24 12:15 Actual Procedures p L2-L3, L3-L4 Posterior Lumbar Laminectomy - Figueroa Renae MD Ordered Studies 01/20/24 12:15 FL lumbar spine 2-3V Routine Hospital Course (1) Lumbar stenosis with neurogenic claudication: Surgical decompression. PG Care Time/CCT Total # of Minutes Spent Total Time Spent with Patient: Total time spent is greater than 50% in coordination of care (as documented) at patient's floor/unit and/or counseling patient: Discharge Plan Discharge Items Patient Disposition: Home - Self-Care Reason For Visit: Low Back Pain Radiating to Left Lower Extremity, M Discharge Diagnosis: Lumbar stenosis with neurogenic claudication. Activity: As commented below Lifting: No more than 10 pounds Bathing: May shower/bathe in 3 days Exercise/Sports: Wait until after follow-up appointment Driving/Machine Use: Resume 3 days after discharge Weightbearing: Full weightbearing Non-emergency contact: Surgeon Call non-emergency contact if: your pain is worsening Follow-up/Referrals: Radha Hazel CRNP [Primary Care Provider] - Diet: Regular Addtl Attending Provider Instructions: Oxycodone with acetaminophen will be sent through ambulatory chart. Pending Studies at Discharge: No Stand-Alone Forms: [employer], Smoking Cessation Medications and DC Order Prescriptions: Continued losartan-hydrochlorothiazide 100-25 mg tablet 1 tab PO QAM fluticasone propionate [Flonase Allergy Relief] 50 mcg/actuation [place],Suspension 2 spray INTRANASAL QAM fexofenadine 180 mg Tablet 180 mg PO DAILY PRN (Reason: Allergy Symptoms) aspirin 81 mg Tablet,Delayed Release (Dr/Ec) 81 mg PO QAM amlodipine 10 mg Tablet 10 mg PO QAM potassium chloride 20 mEq Tablet Extended Release 40 meq PO QAM tramadol 50 mg Tablet 50 mg PO HS spironolactone [Aldactone] 50 mg Tablet 50 mg PO DAILY Discharge Orders: Discharge Order (Routine); Ordered 01/21/24 Ordered By: Figueroa Núñez/Other Patient Handouts: Post-Op Tips: Back Admission Data Admit Date/Time: 01/20/24 19:00 Attending Provider: Figueroa Renae Admit Provider: Figueroa Renae Primary Care Provider: Radha Hazel Other Providers: Zhang Bridges Other Interventions: Discharge Summary Assessment (RN) Last Done: 01/21/24 13:59
[2024-01-21 14:02] VITALS: PULSE 89
--- NOTE | 2024-01-21 14:29 | Operative Report ---
PG Post Operative Report Pre & Post Diagnosis Operation Date: 01/20/24 12:15 Pre-Op Diagnosis: Lumbar stenosis with neurogenic claudication. Post-Op Diagnosis: Lumbar stenosis with neurogenic claudication. I identified the patient and participated in the time-out.: Yes Procedure Operation Date: 01/20/24 12:15 Actual Procedures p L2-L3, L3-L4 Posterior Lumbar Laminectomy - Figueroa Renae MD Surgeon Figueroa Renae MD Commercial Sales Director none Estimated Blood Loss 200 Findings Consistent with Post-Op Diagnosis Specimens none Description of Procedure 1. L3-4 posterior lumbar decompression. (37134) 2. L2-3 posterior lumbar decompression. (69033) Patient taken the operating room and after adequate anesthesia was carefully positioned prone on the Isidoro frame. Preprepped was performed followed by then bringing in fluoroscopy and marking for the incisional area to approach the to mention levels. Prep and drape was performed, I began the procedure with a midline incision taken down through the subcutaneous tissues to the spinous processes and then exposing the interlaminar region of at L2-3 and L3-4. The position was checked with fluoroscopy, followed by then mobilizing the tissues away from the interlaminar regions. Began the procedure at L3-4, the interspinous ligament was removed along with the inferior aspect spinous process of L3 carried down to the interlaminar region. From here I then used a high- speed bur to perform bilateral hemilaminotomies with partial medial facetectomies and foraminotomies with removal of thickened ligamentum flavum, epidural fat and decompression of the segment bilaterally exiting L3 and L4. Once complete, I then irrigated the operative site followed by placement of Floseal and then a neuropathic. I then moved to the L2-3 segment where an identical procedure was performed focus more in the left side within reaching across to the opposite side and removal epidural fat thickened ligamentum flavum. Upon completion of the decompression, Floseal was applied in a similar fashion, irrigation operative site was then performed. Final inspection revealed no issues in terms of any epidural bleeding or evidence of CSF leakage. Local anesthetic was injected around the operative site followed by then vancomycin powder and closure reattaching system spinous ligament were available followed by then additional layer of 0 Vicryl sutures 2-0 Vicryl sutures and jennyfer for the skin. Sterile dressing was applied, the patient was taken recovery room satisfied condition, is to note that this procedure required additional time due to the patient's size and body habitus with a BMI 48 and weight of 350 pounds. I attest to the content of the Intraoperative Record and any orders documented therein. Any exceptions are noted below.
--- NOTE | 2024-01-22 07:39 | Fluoroscopy Report ---
FL lumbar spine 2-3V CLINICAL HISTORY: L2-L3, L3--L4 LAMINECTOMY COMPARISON STUDY: MRI 11/25/2023 FLUOROSCOPY TIME: 34.3 seconds FLUOROSCOPY IMAGES: 4 EXPOSURE DOSE: 32.05 mGy FINDINGS: Retractors are noted adjacent to the posterior elements at L3-L4. No additional images were submitted. IMPRESSION: Fluoroscopic assistance as above. ACT 112: Negative or not required by law. Electronically signed by: Pranav Day M.D. 01/22/2024 7:36 AM
--- NOTE | 2024-01-22 19:28 | Billing Data ---
Date of Service January 22, 2024 Coding Level of Care Code 36542 IN/OBS CONSULT LVL 3,45M
== END 2024-01-21 15:10 | disposition home or self-care (01) ==
LOC: ASU 10:38 → 3N 10:38